=== PATIENT | male | born 1930 | race Caucasian/White ===

== ENCOUNTER 2021-07-10 18:21 | Emergency (ER) | payer OTHER ==
[~2021-07-10] VITALS: Ht 170.2 cm; Wt 77.1 kg
[2021-07-10 18:53] LABS: Basophils # (auto) 0 10 ^3/uL (0-0.2); Basophils % (auto) 0.2 % (0.0-2.0); Eosinophils # (auto) 0 10 ^3/uL (0-0.8); Hematocrit 37.4 % (41.0-53.0); Hemoglobin 12.6 g/dL (13.5-17.5); Lymphocytes # (auto) 0.6 10 ^3/uL (0.4-5.4); Lymphocytes % (auto) 6.2 % (10.0-50.0); Mean Corpuscular Hemoglobin 31.5 pg (28.0-32.0); Mean Corpuscular Hgb Conc. 33.7 g/dL (32.0-36.0); Mean Corpuscular Volume 93.6 fL (80.0-100.0); Monocytes # (auto) 1.2 10 ^3/uL (0-1.3); Monocytes % (auto) 11.6 % (0.0-12.0); Neutrophils # (auto) 8.2 10 ^3/uL (1.6-8.6); Nucleated Red Blood Cells % 0.1 %; Red Cell Distribution Width 12.6 % (11.8-14.3)
[2021-07-10 19:05] LABS: Albumin 2.5 g/dL (3.4-5.0); Calcium 8.8 mg/dL (8.5-10.1); Potassium 3.9 mmol/L (3.5-5.1)
[2021-07-10 19:07] LABS: Magnesium 2.3 mg/dL (1.6-2.6)
[2021-07-10 19:08] LABS: BUN/Creatinine Ratio 20.7; Bilirubin, Total 0.4 mg/dL (0.2-1.0); Total Protein 6.8 g/dL (6.4-8.2)
[2021-07-10 19:26] LABS: INR 1.08 (0.9-1.15)
[2021-07-10 21:10] LABS: Urine Amorphous Crystal FEW /hpf (None Seen); Urine Bacteria MOD /hpf (None Seen); Urine Blood 2+ /uL (Negative); Urine Mucus FEW (None Seen); Urine Specific Gravity 1.014 (1.001-1.035); Urine WBC 24 /hpf (0 - 3)
[2021-07-10] MEDS ORDERED: cefTRIAXone 1GM/50ML D5W 50 ML IV ONE (22:15)
[2021-07-10] MEDS ORDERED: SODIUM CHLORIDE 0.9% 500 ML IV ONE (22:15)
[2021-07-11 09:25] VITALS: BP 118/67
== END 2021-07-11 09:38 | disposition home or self-care (01) ==
LOC: EDBD 18:21 → ER 18:21
DX: N39.0 Urinary tract infection, site not specified (principal); N12 Tubulo-interstitial nephritis, not specified as acute or chronic; N20.0 Calculus of kidney; E03.9 Hypothyroidism, unspecified; Z20.822 Contact with and (suspected) exposure to COVID-19
CPT/HCPCS: 36415; 74176; 80053; 81001; 83605; 83690; 83735; 84484; 85025; 85610; 87086; 87088; 87186; 87426; 93005; 96365; 99285; J0696; J7030; J7040